=== PATIENT | female | born 1970 | race Caucasian/White ===

== ENCOUNTER 2019-02-02 08:10 | Inpatient (IN) ==
--- NOTE | 2019-01-21 16:04 | PAT Medication Instructions ---
Medication Instructions Date of Service January 21, 2019 Home Medications escitalopram oxalate [Lexapro] 20 mg PO QPM ibuprofen 200 mg PO QID PRN multivitamin 1 tab PO QAM omeprazole 20 mg PO QAM ASK your surgeon for instructions ibuprofen 200 mg PO QID PRN DO NOT take the morning of surgery multivitamin 1 tab PO QAM Take morning of surgery With a small sip of water, OTHERWISE NOTHING TO EAT OR DRINK AFTER MIDNIGHT: omeprazole 20 mg PO QAM Take evening before surgery escitalopram oxalate [Lexapro] 20 mg PO QPM Other Notes If you have any questions please call us at [phone] or [phone] or [phone] or [phone]
--- NOTE | 2019-01-25 15:05 | Anesthesiology Consultation ---
Date of Service January 25, 2019 Assessment & Plan (1) Encounter for pre-operative examination: PCP: 01/20/19: "Patient should be considered low risk" for surgery Chart Review Chart Review: Acceptable Risk for Surgery (pending preop testing (labs, EKG, CXR)) and Patient seen in Pre Admission Testing Teaching & Discussion Pre-Anesthesia Teaching/Discussion Notes: Instructed NPO after midnight before surgery,except medications with 15 cc of water. Medication instructions provided according to the PAT guidelines. History Surgery Operation Date: 02/02/19 10:40 Proposed Procedures p Left Total Knee Arthroplasty - Michael Jenkins MD Height/Weight Height: 5 ft Weight: 73.3 kg Allergies Allergy/AdvReac Type Severity Reaction Status Date / Time latex Allergy Redness of Verified 01/20/19 14:04 Skin Medications Home Medications Medication Instructions Recorded Confirmed Last Taken escitalopram oxalate [Lexapro] 20 mg PO QPM 01/20/19 01/20/19 Unknown ibuprofen 200 mg PO QID PRN 01/20/19 01/20/19 Unknown multivitamin 1 tab PO QAM 01/20/19 01/20/19 Unknown omeprazole 20 mg PO QAM 01/20/19 01/20/19 Unknown Past Medical History Medical History Anxiety Depression GERD (gastroesophageal reflux disease) controlled History of gastric ulcer 2+ years ago Osteoarthritis TMJ click no locking Exercise / Class Metabolic Activity II 4-5 Yardwork/Stairs/Walk up hill Past Surgical History Surgical History History of carpal tunnel surgery of left wrist History of cholecystectomy History of esophagogastroduodenoscopy (EGD) History of hysterectomy History of surgery D&E History of wisdom tooth extraction Past Anesthesia History No Hx of Anesthesia Complications (except post-op nausea) and No Family Hx of Anesthesia Complications History of PONV No Hx of Motion Sickness and History of PONV (post-op nausea) Social History Smoking Status: Never smoker Do You Dip or Chew Tobacco: No Hx Alcohol Use: Yes alcohol intake frequency: holidays/special occasions only Hx Substance Use: No substance use type: does not use Review of Systems Reflux controlled. Patient denies chest pain, shortness of breath, dyspnea on ex ertion, cough, wheezing, palpitations. Physical Exam Vital Signs VITALS BP 98/60 (Patient reports BP today was: 128/82 at PCP visit; advised to followup with PCP) P 85 TEMP 98.4 SP02 93%RA RESP 18 PHYSICAL Full neck and c-spine range of motion. Full TMJ range of motion. TMD 3 finger breaths Mallampati Score 3 Dentition: intact Lungs: clear throughout to auscultation Cardiac: regular rate and rhythm, no murmurs noted Spine: normal Carotid arteries: negative bruit Extremities: no edema
--- NOTE | 2019-01-25 16:03 | XRay Report ---
XR chest 2V routine HISTORY: 48 years-old Female PREOP preoperative exam. No acute chest complaints COMPARISON: None available TECHNIQUE: PA and lateral views of the chest FINDINGS: Cardiomediastinal and hilar silhouettes are within normal limits. There is no pneumothorax, pleural e ffusion, focal airspace consolidation or overt pulmonary edema. Bones of the chest appear grossly int act. Cholecystectomy. IMPRESSION: No acute process. The above report was generated using voice recognition software. It may contain grammatical, syntax o r spelling errors. Electronically signed by: Nba Collins M.D. 01/25/2019 4:01 PM
[2019-01-25 16:37] LABS: Basophils # (auto) 0.04 K/uL (0-0.2); Basophils % (auto) 0.4 %; Eosinophils % (auto) 2.7 %; Hemoglobin 12.5 g/dL (12.0-16.0); Immature Granulocytes # (auto) 0.04 K/uL (0.00-0.02); Immature Granulocytes % (auto) 0.4 %; Lymphocytes # (auto) 3.81 K/uL (1.2-3.4); Mean Corpuscular Hemoglobin 30.5 pg (25-34); Mean Corpuscular Hgb Conc 33.8 g/dL (32-36); Mean Corpuscular Volume 90.2 fL (80-100); Mean Platelet Volume 9.9 fL (7.4-10.4); Monocytes # (auto) 0.57 K/uL (0.11-0.59); Monocytes % (auto) 5.1 %; Neutrophils # (auto) 6.46 K/uL (1.4-6.5); Neutrophils % (auto) 57.4 %; Platelet Count 399 K/uL (130-400); RDW Coefficient of Variation 12.8 % (11.5-14.5); RDW Standard Deviation 42.1 fL (36.4-46.3); White Blood Count 11.22 K/uL (4.8-10.8)
[2019-01-25 16:42] LABS: Appearance Urine Clear (Clear); Bacteria Urine Automated Negative (Negative); Bilirubin Urine Negative (Negative); Blood Urine Trace (Negative); Cast Urine Automated 0 /lpf (0-5); Color Urine Yellow; Glucose Urine UA Negative (Negative); Ketones Urine Negative (Negative); Leukocyte Esterase Urine Trace (Negative); Nitrite Urine Negative (Negative); Protein Urine Negative (Negative); RBC Urine Automated 0-4 /hpf (0-4); Specific Gravity Urine 1.016 (1.000-1.030); Urobilinogen Urine Negative (Negative)
[2019-01-25 16:46] LABS: BUN Creatinine Ratio 18.8 (10-20); Creatinine Clr Calc Pharmacy 67.6 ml/min; Est GFR (African American) 87.6; Est GFR (Non-African American) 75.6; Potassium 3.5 mmol/L (3.5-5.1)
[2019-01-25 16:51] LABS: Partial Thromboplastin Time 26.3 Seconds (21.0-31.0); Prothrombin Time 10.2 Seconds (9.0-12.0)
--- NOTE | 2019-01-31 20:19 | History and Physical Report ---
DATE OF ADMISSION: 02/02/2019 CHIEF COMPLAINT: Left knee pain. HISTORY OF PRESENT ILLNESS: This 48-year-old white female presents to the office with complaints of left knee pain that has been ongoing for over a year. She actually has bilateral knee pain, but the left is worse. Pain has become worse with time. She has tried activity modification as well as oral anti-inflammatories, cortisone injections and viscosupplementation injections without lasting improvement. She elects to proceed with total joint arthroplasty in hopes of alleviating her pain. Pain is worse with weightbearing. It is affecting her ADLs. Worse with prolonged walking. She recently was in [place] and required use of a cane. No numbness or tingling. She notes frequent effusions. Occasional night pain. No hip or ankle pain. Preoperative imaging has been obtained. PAST MEDICAL HISTORY: Significant for anxiety, snoring, history of pneumonia, osteoarthritis, GERD, and obesity. PREVIOUS SURGERIES: Partial hysterectomy, cholecystectomy, left carpal tunnel release, wisdom tooth extraction. ALLERGIES: NKDA. SHE DOES GET SIGNIFICANT REDNESS WITH ADHESIVES AND BAND-AIDS. CURRENT MEDICATIONS: Omeprazole 20 mg daily, Lexapro 20 mg daily, multivitamin daily, ibuprofen p.r.n. SOCIAL HISTORY: The patient is . No tobacco use, occasional ETOH use. FAMILY HISTORY: Noncontributory. REVIEW OF SYSTEMS: A total of 10 systems are reviewed and are significant only for above stated conditions. PHYSICAL EXAMINATION: GENERAL: Well-developed, well-nourished middle aged white female in no acute distress. Sitting in a chair. Alert and oriented. SKIN: Warm and dry with good turgor. No rashes or lesions. No ecchymosis or erythema. Mild intraarticular effusion in the left knee. HEENT: Normocephalic, atraumatic. Eyes PERRLA, EOMI. Nares patent bilaterally without turbinate enlargement. Oropharynx without erythema or exudate. No lesions noted. Uvula midline. Oral mucosa moist. Good dentition. Caps are noted. HEART: RRR. No MGR. LUNGS: Clear to auscultation bilaterally. No crackles, rhonchi or wheezing. Good air movement. ABDOMEN: Obese. Bowel sounds present x4, soft, nontender. No organomegaly. No masses. MUSCULOSKELETAL: Left knee evaluation reveals mild intraarticular effusion as stated. Full terminal extension. Flexion to greater than 100 degrees. Strength is 5/5 with fair quad tone. Crepitus is palpable with motion. She has focal discomfort with palpation over the medial joint line. No significant lateral joint line discomfort with palpation at this time. No defect in the patellar tendon or quadriceps tendon. She does have medial peripatellar discomfort with palpation today as well. Stable collateral ligaments. Ambulatory with a minimally antalgic gait. NEUROLOGIC: Gross sensation is intact across both lower extremities by soft touch. Peripheral pulses are 2+. Cranial nerves II-XII are intact. DATA: Radiographic imaging previously obtained shows varus alignment. Medial joint space collapse. Periarticular osteophytes and subchondral sclerosis are also present. No evidence of fracture. IMPRESSION: Left knee end-stage degenerative joint disease. PLAN: Postoperative prescriptions for Percocet and Coumadin will be provided at discharge from the hospital. Anticipate discharge to home with home health services. Preoperative lab work, EKG, and chest x-ray have been ordered. Medical clearance has been requested from her PCP, Dr. Parrish. She already has access to a cane and walker.
[~2019-02-02 08:10] MED LIST: BUPIVACAINE 0.25% 30 ML VIAL ONE; BUPIVACAINE 0.5 % 5 MG/1 ML PF 10ML VIAL ONE; CEFAZOLIN 2000MG 2,000 MG/15 ML SYR IV SCH; LR 500ML BOLUS IV SCH; LR 60ML/HR IV SCH; ROPIVACAINE 0.5% HCL/PF 150 MG, BUPIVACAINE 0.5% MPF 30 ML, EPINEPHrine 0.15 MG, Ketoro... INFIL SCH; TRANEXAMIC ACID 1,000 MG **IV Pre-op IV SCH
--- NOTE | 2019-02-02 08:34 | History & Physical Bridge Note ---
Date of Service February 02, 2019 History & Physical Bridge Note I have examined the patient, reviewed the History & Physical and in the interval since the performance of the History & Physical I have noted the following changes of clinical significance:consent obtained. no changes noted
[2019-02-02] MEDS ORDERED: MIDAZOLAM HCL 1 MG/ML 2ML VIAL ONE ×3 (09:29→12:04)
[2019-02-02] MEDS ORDERED: ORTHO JOINT ANESTHETIC ONE (10:44)
[2019-02-02] MEDS ORDERED: ONDANSETRON INJ 2 MG/ML 2 ML VIAL IV PRN (10:51)
[2019-02-02] MEDS ORDERED: ATROPINE SULFATE 0.1 MG/ML 10ML SYR IV PRN (10:51)
[2019-02-02] MEDS ORDERED: ePHEDrine sulfate 50 MG/ML AMP IV PRN (10:51)
[2019-02-02] MEDS ORDERED: fentaNYL citrate 100 MCG/2 ML VIAL IV PRN (10:51)
[2019-02-02] MEDS ORDERED: PROPOFOL IV EMULSION 10 MG/ML 20 ML VIAL IV ONE ×2 (11:18→12:00)
[2019-02-02] MEDS ORDERED: LIDOCAINE HCL 2% 2 ML VIAL/AMP(20MG/ML) INFIL ONE (11:18)
[2019-02-02] MEDS ORDERED: ONDANSETRON INJ 2 MG/ML 2 ML VIAL ONE (11:18)
[2019-02-02] MEDS ORDERED: PHENYLEPHRINE 100MCG/ML 5ML SYR ONE (12:14)
--- NOTE | 2019-02-02 12:35 | Post Operative Brief Note ---
Immediate Post Op Note v1 Date of Surgery February 02, 2019 Pre & Post Diagnosis Operation Date: 02/02/19 10:40 Pre-Op Diagnosis: Left Knee End-Stage Degenerative Joint Disease Post-Op Diagnosis: Left Knee End-Stage Degenerative Joint Disease Procedure Operation Date: 02/02/19 10:40 Actual Procedures p Left Total Knee Arthroplasty(Left) - Michael Jenkins MD Surgeon Michael Jenkins MD Sales And Production Manager [facility] Estimated Blood Loss 25 Findings Consistent with Post-Op Diagnosis
--- NOTE | 2019-02-02 12:36 | Post Operative Brief Note ---
Immediate Post Op Note v1 Date of Surgery February 02, 2019 Pre & Post Diagnosis Operation Date: 02/02/19 10:40 Pre-Op Diagnosis: Left Knee End-Stage Degenerative Joint Disease Post-Op Diagnosis: Left Knee End-Stage Degenerative Joint Disease Procedure Operation Date: 02/02/19 10:40 Actual Procedures p Left Total Knee Arthroplasty(Left) - Michael Jenkins MD Surgeon Michael Jenkins MD Regulator Assembler [facility] Estimated Blood Loss 25 Findings Consistent with Post-Op Diagnosis
--- NOTE | 2019-02-02 12:41 | Operative Report ---
Post Operative Report Pre & Post Diagnosis Operation Date: 02/02/19 10:40 Pre-Op Diagnosis: Left Knee End-Stage Degenerative Joint Disease Post-Op Diagnosis: Left Knee End-Stage Degenerative Joint Disease Procedure Operation Date: 02/02/19 10:40 Actual Procedures p Left Total Knee Arthroplasty(Left) - Michael Jenkins MD Surgeon SCOT Jenkins MD Textile Designer [facility] Estimated Blood Loss 25 Findings Consistent with Post-Op Diagnosis Specimens see operative report Drains none Complications none Disposition Accompanied Patient To Recovery: Yes Disposition: Recovery Room Indications This 48-year-old white female presented to the office with complaints of intractable left knee pain. She had tried conservative care measures including injection therapy, activity modification, and oral medications, without improvement. She elected to proceed with surgical intervention after being educated about potential risks and outcomes. Preoperative imaging was obtained. Description of Procedure Patient was administered a spinal anesthetic and then taken to the operating room where she was given sedation. She was prepped and draped in the usual ster ile fashion. Please see Dr. Jenkins's operative report for specifics of the procedure. I was present for the entire case from initial patient positioning through final wound care. Assistance was provided in tissue retraction, hemostasis, trial implant placement, final implant placement, and final wound closure. Patient was taken to the recovery room in satisfactory condition. I attest to the content of the Intraoperative Record and any orders documented therein. Any exceptions are noted below.
--- NOTE | 2019-02-02 13:01 | Anesthesiology Progress Note ---
Date of Service February 02, 2019 Anesthesia Post Procedure Vital Signs Vital Signs: Temp Pulse Resp BP Pulse Ox 02/02/19 08:37 36.8 C 78 18 127/75 100 Pain Intensity Left Knee: Pain Intensity: 3 Transfer of Care Handoff Completed per policy Notes Mental Status: alert / awake / arousable and participated in evaluation Nausea / Vomiting: adequately controlled Pain: adequately controlled Airway Patency, RR, SpO2: stable & adequate BP & HR: stable & adequate Hydration State: stable & adequate Neuraxial Anesthesia: was administered and sensory block is resolving Anesthetic Complications: no major complications apparent and Pt Satisfied with anesthetic care
--- NOTE | 2019-02-02 13:18 | XRay Report ---
XR knee LT 2V routine CLINICAL HISTORY: Surgical Post Op postoperative evaluation COMPARISON: None. DISCUSSION: Anatomic alignment posttotal left knee arthroplasty. Could contact between prosthetic and underlying bone. Expected postoperative soft tissue change IMPRESSION: Anatomic alignment posttotal left knee arthroplasty. The above report was generated using voice recognition software. It may contain grammatical, syntax or spelling errors. Electronically signed by: Maikel Brewster M.D. 02/02/2019 1:16 PM
--- NOTE | 2019-02-02 13:46 | Progress Note ---
DATE: 02/02/2019 Postop check status post left total knee replacement. The patient is doing well, has no issues. She denies chest pain, shortness of breath, fever, chills, nausea, vomiting or headache. Vital signs are stable. She is afebrile. Neurovascular check femoral sciatic nerve is coming back from the block. ASSESSMENT: Doing well status post left total knee replacement. Postop x-rays look excellent. Plan at this point in time is to follow up with potential discharge tomorrow and proceed with home health services. Coumadin to keep DVT, PE risk to a minimal.
--- NOTE | 2019-02-02 13:47 | Operative Report ---
DATE OF OPERATION: 02/02/2019 SURGEON: Michael Jenkins M.D. NURSE PRACTITIONER MANAGER: Elijah Dominguez PA-C. No resident or fellow available. PREOPERATIVE DIAGNOSIS: Osteoarthritis, left knee. Failed conservative management. POSTOPERATIVE DIAGNOSIS: Osteoarthritis, left knee. Failed conservative management. OPERATION PERFORMED: Cemented left total knee replacement. PERIOPERATIVE SITUATION: Medically cleared female who has had significant discomfort despite being treated aggressively conservatively including steroid injections, viscosupplementation injections, oral anti-inflammatories. X-rays reveal medial compartment osteoarthritis and patellofemoral osteoarthritis. DESCRIPTION OF PROCEDURE: The patient appropriately identified, site verified, consent verified. Antibiotics confirmed as being given. Left lower extremity was prepped and draped in usual routine fashion. Tourniquet inflated to 300 mmHg after exsanguination of limb with a rubber Esmarch bandage. Tourniquet inflated to 300 mmHg for a total of 54 minutes. Midline exposure was utilized. Parapatellar arthrotomy performed. Synovectomy completed. Osteophytes resected. Distal femur entered. Cruciates resected. Tibia subluxated. Medial and lateral menisci resected. Distal femur resected 12 mm. Proximal tibia resected 4 mm. The extension gap was excellent. The femur was sized between a 2.5 and a 2, was measured 2-1/2, cut 2. There was no notching. The flexion gap was a little bit tight medially. It was released a little bit posteriorly, then was excellent. The box cut was then made. It should be mentioned that the distal femoral cutting guide was applied. Anterior, posterior condylar and chamfer cuts were made nicely and then the flexion gap was checked. Once the flexion gap was checked, it was slightly tight medially and released a little bit and then it was excellent. The box cut was then made. Size 2.5 fit well. The tibia was then broached and then reamed to a size 2 with a spacer of 10 mm thick, posterior cruciate substituting was excellent. The patella tracked well. The patella was sized to a 38, resected leaving 15 mm. Seating holes made and the trial seated, it tracked well. Orthomix was then all injected about the knee including posteriorly. This was then removed. The wound was irrigated with Betadine Pulsavac and then the permanent cemented into position, tibia, femur and patella in that sequence. After 12 minutes, the tourniquet deflated. Bleeding points controlled with electrocautery. After 14 minutes, the knee flexed. No cement removal was required. The wound was irrigated copiously with Betadine and Pulsavac and then permanent liner seated and then closed at 60 degrees of flexion with #2 Vicryl, 2-0 Vicryl and stainless steel clips for skin. Appropriate dressing applied. The patient transferred to recovery room in satisfactory condition having tolerated the procedure well. Bone pathology pending. DVT prophylaxis with Coumadin. Summary of implants as noted above, left knee. EBL was 25 mL. I attest to the content of the Intraoperative Record and any orders documented therein. Any exception s are noted below.
--- NOTE | 2019-02-02 14:03 | Discharge Summary ---
CHIEF COMPLAINT: Left knee pain. HISTORY OF PRESENT ILLNESS: The patient underwent elective left total knee replacement. She has done well and has no major issues. PAST MEDICAL HISTORY: Remarkable for anxiety, snoring, pneumonia, osteoarthritis, GERD, and obesity. PAST SURGICAL HISTORY: Include hysterectomy, cholecystectomy, carpal tunnel release, wisdom tooth extraction. ALLERGIES: BAND-AIDS and otherwise nothing known. PREADMISSION MEDICATIONS: Include omeprazole, Lexapro, p.r.n. ibuprofen. She will be discharged on Coumadin, keep INR 1.8-2.2 and p.r.n. Percocet. SOCIAL HISTORY: Reveals she is . No tobacco or alcohol use. REVIEW OF SYSTEMS: Reveals no chest pain, shortness of breath, fever, chills, nausea, vomiting or headache. ASSESSMENT AND PLAN: Status post left total knee replacement. Continue postop care pathway. Discharge tomorrow morning. Outpatient services. Follow up in 2 weeks for staple removal.
[2019-02-02] MEDS ORDERED: ALUMINUM/MAGNESIUM SUSP 30 ML UDC PO PRN (14:43)
[2019-02-02] MEDS ORDERED: NALOXONE HCL 0.4 MG/1 ML VIAL/CARP IV PRN (14:43)
[2019-02-02] MEDS ORDERED: SODIUM CHLORIDE 0.9% 1000ML 1,000 ML IV SCH (14:43)
[2019-02-02] MEDS ORDERED: MAGNESIUM HYDROXIDE SUSP 30 ML UDC PO PRN (14:43)
[2019-02-02] MEDS ORDERED: BISACODYL 10 MG SUPP PR PRN (14:43)
[2019-02-02] MEDS ORDERED: METOCLOPRAMIDE HCL INJ 5 MG/ML 2 ML VIAL IV PRN (14:43)
[2019-02-02] MEDS ORDERED: HYDROmorphone INJ 0.5 MG/0.5 ML SYR IV PRN (14:43)
[2019-02-02] MEDS ORDERED: DiphenhydrAMINE HCL 50 MG/ML VIAL IV PRN (14:43)
[2019-02-02] MEDS: ACETAMINOPHEN 500 MG TAB PO SCH ×2 (15:39→21:30)
[2019-02-02] MEDS ORDERED: WARFARIN SOD 5 MG TAB PO ONE (16:00)
[2019-02-02] MEDS: KETOROLAC 30 MG/ML VIAL IV SCH ×2 (16:14→21:30)
[2019-02-02] MEDS: ASCORBIC ACID 500 MG TAB PO SCH (16:14)
[2019-02-02] MEDS: FERROUS GLUCONATE 324 MG TAB PO SCH (16:14)
[2019-02-02] MEDS: ORTHO WARFARIN NOMOGRAM SCH (16:21)
[2019-02-02] MEDS: CEFAZOLIN 2000MG 2,000 MG/15 ML SYR IV SCH (18:40)
[2019-02-02] MEDS ORDERED: TRANEXAMIC ACID 1,000 MG in 0.9 % SODIUM CHLORIDE 100 ML IV SCH (19:00)
[2019-02-02] MEDS: DOCUSATE SODIUM 100 MG CAP PO SCH (20:43)
[2019-02-02] MEDS ORDERED: ESCITALOPRAM OXALATE 20 MG TAB PO SCH (21:00)
[2019-02-02] MEDS ORDERED: SENNA 8.6 MG TAB PO SCH (21:00)
[2019-02-03] MEDS: OXYCODONE HCL IR 5 MG TAB (IMMEDIATE RELEASE) PO PRN ×3 (00:10→12:05)
[2019-02-03] MEDS: KETOROLAC 30 MG/ML VIAL IV SCH ×3 (03:33→11:12)
[2019-02-03] MEDS: CEFAZOLIN 2000MG 2,000 MG/15 ML SYR IV SCH (03:34)
[2019-02-03] MEDS: ACETAMINOPHEN 500 MG TAB PO SCH (05:51)
--- NOTE | 2019-02-03 07:01 | Progress Note ---
DATE: 02/03/2019 SUBJECTIVE: Status post left total knee replacement. The patient is doing well, sitting up in bed dressed, has no issues. Denies chest pain, shortness of breath, fever, chills, nausea, vomiting or headache. OBJECTIVE: Vital signs are stable. She is afebrile. A.m. labs are pending. Can do a straight leg raise. Femoral sciatic nerve function is normal. Calves nontender. ASSESSMENT: Doing well. Continue with discharge. PLAN: Needs urgent stat case management appointment this morning. Was not seen yesterday for some reason. After PT, she can be discharged.
[2019-02-03 07:14] LABS: Hematocrit (blood only) 33.7 % (37-47); Mean Corpuscular Hemoglobin 29.3 pg (25-34); Mean Corpuscular Hgb Conc 32.6 g/dL (32-36); Mean Corpuscular Volume 89.9 fL (80-100); Mean Platelet Volume 9.5 fL (7.4-10.4); Platelet Count 341 K/uL (130-400); RDW Coefficient of Variation 12.6 % (11.5-14.5); RDW Standard Deviation 41.5 fL (36.4-46.3); Red Blood Count 3.75 M/uL (4.2-5.4); White Blood Count 14.59 K/uL (4.8-10.8)
[2019-02-03 07:29] LABS: INR 1.1 (0.9-1.1); Prothrombin Time 10.8 Seconds (9.0-12.0)
--- NOTE | 2019-02-03 07:47 | Anesthesiology Progress Note ---
Date of Service February 03, 2019 Anesthesia Post Procedure Vital Signs Vital Signs: Temp Pulse Pulse Resp BP BP Pulse Ox 02/03/19 07:37 36.8 C 72 17 111/71 97 02/03/19 03:34 36.7 C 76 16 113/74 97 02/02/19 23:24 36.8 C 77 16 115/72 97 02/02/19 18:51 36.2 C L 73 19 108/70 96 02/02/19 16:23 37.0 C 80 19 111/72 95 02/02/19 15:44 37.0 C 86 19 129/74 02/02/19 14:54 37.0 C 85 19 114/76 94 02/02/19 14:30 37.1 C 74 16 107/67 94 02/02/19 14:00 75 15 108/62 90 02/02/19 13:45 72 15 105/65 91 02/02/19 13:30 69 16 97/62 L 95 02/02/19 13:15 36.6 C 78 16 103/59 L 94 02/02/19 13:10 78 18 106/62 95 02/02/19 13:00 73 14 107/64 95 02/02/19 12:50 77 18 101/59 L 98 02/02/19 12:40 37.0 C 84 16 103/61 99 02/02/19 08:37 36.8 C 78 18 127/75 100 Pain Intensity Left Knee: Pain Intensity: 4 Notes Mental Status: alert / awake / arousable and participated in evaluation Patient Amnestic to Procedure: Yes Nausea / Vomiting: adequately controlled Pain: adequately controlled Airway Patency, RR, SpO2: stable & adequate BP & HR: stable & adequate Hydration State: stable & adequate Anesthetic Complications: no major complications apparent and Pt Satisfied with anesthetic care
[2019-02-03 07:49] LABS: BUN Creatinine Ratio 19.6 (10-20); Calcium 8.9 mg/dl (8.5-10.1); Creatinine Clr Calc Pharmacy 75.5 ml/min; Est GFR (African American) 101.2; Est GFR (Non-African American) 87.3; Potassium 3.7 mmol/L (3.5-5.1)
[2019-02-03] MEDS ORDERED: dexAMETHasone 10 MG in SYRINGE 0 ML IV SCH (08:00)
[2019-02-03] MEDS: DOCUSATE SODIUM 100 MG CAP PO SCH (08:48)
[2019-02-03] MEDS: ASCORBIC ACID 500 MG TAB PO SCH (08:48)
[2019-02-03] MEDS: FERROUS GLUCONATE 324 MG TAB PO SCH (08:49)
[2019-02-03] MEDS ORDERED: MULTIVITAMIN TAB PO SCH (09:00)
[2019-02-03] MEDS ORDERED: PANTOprazole 40 MG TAB PO SCH (09:00)
[2019-02-03] MEDS: ORTHO WARFARIN NOMOGRAM SCH (10:52)
[2019-02-03] MEDS ORDERED: WARFARIN SOD 5 MG TAB PO ONE (16:00)
== END 2019-02-03 12:27 | disposition home health service (06) | DRG 470 ==
LOC: ASU 08:10 → 3N 12:50

== ENCOUNTER 2020-02-29 06:51 | Observation (INO) ==
--- NOTE | 2020-02-02 15:02 | PAT Medication Instructions ---
Medication Instructions Date of Service February 02, 2020 Home Medications escitalopram oxalate [Lexapro] 20 mg PO QPM multivitamin 1 tab PO QAM omeprazole 20 mg PO QAM PRN ibuprofen 400 - 600 mg PO Q6H PRN ASK your surgeon for instructions ibuprofen 400 - 600 mg PO Q6H PRN DO NOT take the morning of surgery multivitamin 1 tab PO QAM Take morning of surgery With a small sip of water, OTHERWISE NOTHING TO EAT OR DRINK AFTER MIDNIGHT: omeprazole 20 mg PO QAM PRN (if needed) Take evening before surgery escitalopram oxalate [Lexapro] 20 mg PO QPM Other Notes If you have any questions please call us at [phone] or [phone] or [phone] or [phone]
--- NOTE | 2020-02-06 12:16 | Anesthesiology Consultation ---
Date of Service February 06, 2020 Assessment & Plan (1) Encounter for pre-operative examination: - Per assessment on 02/05: Travel screen- Lives/works in [facility] [place]. Uses PPE. No known COVID-19 positive contacts or current COVID-19 related symptoms. Surgeon arranging preop COVID testing. Awaiting results. - S/P Left TKA: 02/02/18: SAB x1 attempt at L3 + PNB at [facility] Chart Review Chart Review: Acceptable Risk for Surgery (pending surgeon-ordered PCP clearance) and Patient seen in Pre Admission Testing History Surgery Operation Date: 02/29/20 08:50 Proposed Procedures p Right Total Knee Arthroplasty - Michael Jenkins MD Height/Weight Height: 5 ft Weight: 73.7 kg Allergies Allergy/AdvReac Type Severity Reaction Status Date / Time adhesive Allergy Unknown redness Verified 02/06/20 14:50 with bandaids/tape Medications Home Medications Medication Instructions Recorded Confirmed Last Taken escitalopram oxalate [Lexapro] 20 mg PO QPM 01/20/19 02/01/20 02/01/19 21:00 multivitamin 1 tab PO QAM 01/20/19 02/01/20 02/01/19 21:00 omeprazole 20 mg PO QAM PRN 01/20/19 02/01/20 02/02/19 06:30 ibuprofen 400 - 600 mg PO Q6H PRN 02/01/20 02/01/20 Unknown Past Medical History Medical History (Updated 02/06/20 @ 12:12 by Tracy Lomeli) Anxiety Depression GERD (gastroesophageal reflux disease) controlled History of gastric ulcer 2+ years ago Osteoarthritis TMJ click R/L, no locking Exercise / Class Metabolic Activity II 4-5 Yardwork/Stairs/Walk up hill Past Surgical History Surgical History (Updated 02/06/20 @ 14:51 by Tracy Lomeli) History of carpal tunnel surgery of left wrist History of cholecystectomy History of esophagogastroduodenoscopy (EGD) History of hysterectomy History of surgery D&E History of total knee replacement Left TKA: 02/02/18: SAB x1 attempt at L3 + PNB at [facility] History of wisdom tooth extraction Past Anesthesia History No Hx of Anesthesia Complications (except PONV) and No Family Hx of Anesthesia Complications History of PONV No Hx of Motion Sickness and History of PONV Social History Smoking Status: Never smoker Do You Dip or Chew Tobacco: No Hx Alcohol Use: Yes Alcohol type: wine alcohol intake frequency: holidays/special occasions only Alcohol Intake Frequency Comment: RARELY Hx Substance Use: No substance use type: does not use Review of Systems Patient denies chest pain, shortness of breath, dyspnea on exertion, fever, chills, cough, wheezing, palpitations. Physical Exam Vital Signs VITALS BP 107/74 P 75 TEMP 98.1 SP02 98%RA RESP 16 PHYSICAL Full neck and c-spine range of motion. Full TMJ range of motion. TMD 3.5 finger breaths Mallampati Score 2 Dentition: intact Lungs: clear throughout to auscultation Cardiac: regular rate and rhythm, no murmurs noted Spine: normal Extremities: no edema Testing Laboratory Results 02/06/20 11:58 02/06/20 11:25 PT 10.3 Seconds (9.0-12.0) 02/06/20 11:58 INR 1.0 (0.9-1.1) 02/06/20 11:58 APTT 27.4 Seconds (21.0-31.0) 02/06/20 11:58 Urine Color Yellow 02/06/20 Unknown Urine Appearance Clear (Clear) 02/06/20 Unknown Urine pH 5.5 (4.5-7.5) 02/06/20 Unknown Ur Specific [place] 1.008 (1.000-1.030) 02/06/20 Unknown Urine Protein Negative (Negative) 02/06/20 Unknown Urine Glucose (UA) Negative (Negative) 02/06/20 Unknown Urine Ketones Negative (Negative) 02/06/20 Unknown Urine Nitrite Negative (Negative) 02/06/20 Unknown Ur Leukocyte Esterase Trace (Negative) H 02/06/20 Unknown Urine WBC (Auto) 1-5 /hpf (0-5) 02/06/20 Unknown Urine RBC (Auto) 0-4 /hpf (0-4) 02/06/20 Unknown U Hyaline Cast (Auto) 0 /lpf (0-5) 02/06/20 Unknown U Epithel Cells (Auto) 5-10 /lpf (0-5) H 02/06/20 Unknown Urine Bacteria (Auto) Negative (Negative) 02/06/20 Unknown Blood Type B Positive 02/06/20 11:58 Antibody Screen NEGATIVE 02/06/20 11:58 Electrocardiogram Date: 02/06/20 Findings: + NSR @ (69) Chest X-Ray Date: 02/06/20 FINDINGS: Cardiomediastinal and hilar silhouettes are within normal limits. No pneumothorax, pleural effusion, airspace consolidation or overt pulmonary edema. Bones of the chest appear grossly intact. Cholecystectomy. IMPRESSION: No acute process.
--- NOTE | 2020-02-06 12:53 | XRay Report ---
XR chest Pre-admission PA/Lat HISTORY: 49 years-old Female pat preoperative exam. No acute chest complaints COMPARISON: Chest radiograph 01/25/2019 TECHNIQUE: PA and lateral views of the chest FINDINGS: Cardiomediastinal and hilar silhouettes are within normal limits. No pneumothorax, pleural effusion, airspace consolidation or overt pulmonary edema. Bones of the chest appear grossly intact. Cholecyste ctomy. IMPRESSION: No acute process. ACT 112: Negative or not required by law. The above report was generated using voice recognition software. It may contain grammatical, syntax o r spelling errors. Electronically signed by: Nba Collins M.D. 02/06/2020 12:52 PM
[2020-02-06 12:59] LABS: Basophils % (auto) 0.5 %; Eosinophils % (auto) 5.6 %; Hematocrit (blood only) 37.6 % (37-47); Hemoglobin 12.4 g/dL (12.0-16.0); Lymphocytes % (auto) 28.8 %; Mean Corpuscular Hemoglobin 29.7 pg (25-34); Mean Corpuscular Volume 90.2 fL (80-100); Mean Platelet Volume 9.2 fL (7.4-10.4); Monocytes % (auto) 6.3 %; Neutrophils % (auto) 58.5 %; Platelet Count 400 K/uL (130-400); RDW Coefficient of Variation 12.7 % (11.5-14.5); RDW Standard Deviation 41.9 fL (36.4-46.3); Red Blood Count 4.17 M/uL (4.2-5.4); White Blood Count 7.56 K/uL (4.8-10.8)
[2020-02-06 13:00] LABS: Basophils # (auto) 0.04 K/uL (0-0.2); Eosinophils # (auto) 0.42 K/uL (0-0.5); Immature Granulocytes # (auto) 0.02 K/uL (0.00-0.02); Immature Granulocytes % (auto) 0.3 %; Lymphocytes # (auto) 2.18 K/uL (1.2-3.4); Monocytes # (auto) 0.48 K/uL (0.11-0.59); Neutrophils # (auto) 4.42 K/uL (1.4-6.5)
[2020-02-06 13:05] LABS: Appearance Urine Clear (Clear); Bacteria Urine Automated Negative (Negative); Bilirubin Urine Negative (Negative); Blood Urine Trace (Negative); Cast Urine Automated 0 /lpf (0-5); Color Urine Yellow; Glucose Urine UA Negative (Negative); Ketones Urine Negative (Negative); Leukocyte Esterase Urine Trace (Negative); Nitrite Urine Negative (Negative); Protein Urine Negative (Negative); RBC Urine Automated 0-4 /hpf (0-4); Specific Gravity Urine 1.008 (1.000-1.030); Urobilinogen Urine Negative (Negative); pH Urine 5.5 (4.5-7.5)
[2020-02-06 13:13] LABS: Calcium 9.4 mg/dl (8.5-10.1); Creatinine Clr Calc Pharmacy 77.5 ml/min; Est GFR (African American) 103.6; Est GFR (Non-African American) 89.4; Potassium 4.1 mmol/L (3.5-5.1)
[2020-02-06 13:15] LABS: Partial Thromboplastin Time 27.4 Seconds (21.0-31.0); Prothrombin Time 10.3 Seconds (9.0-12.0)
--- NOTE | 2020-02-06 14:09 | Electrocardiogram Report ---
Test Reason : Blood Pressure : / mmHG Vent. Rate : 069 BPM Atrial Rate : 069 BPM P-R Int : 140 ms QRS Dur : 080 ms QT Int : 400 ms P-R-T Axes : 058 011 029 degrees QTc Int : 428 ms Normal sinus rhythm Normal ECG When compared with ECG of 25-JAN-2019 15:32, No significant change was found Confirmed by Martinez Montes ([id number]) on 02/06/2020 2:08:53 PM Referred By: Michael Jenkins Confirmed By:Martinez Montes
--- NOTE | 2020-02-08 16:00 | History & Physical Report ---
Date of Service February 08, 2020 Assessment & Plan (1) Right knee DJD: Postoperative prescriptions for Percocet and Coumadin will be provided at discharge from the hospital. Anticipate discharge to home with home health services. She already has a walker and raised toilet seat. Preoperative lab work, EKG, and chest x-ray have been ordered. Medical clearance has already been received from her PCP. PDMP was checked and no concerning findings were noted. The patient is aware of the COVID-19 risks associated with surgery. She is currently asymptomatic of any COVID-19 symptoms. She will obtain nasal swab testing prior to proceeding with surgery. History of Present Illness Chief Complaint: RIght knee pain Primary Care Provider: Francisco Parrish This 49-year-old white female presents today for a longstanding history of right knee pain. She is scheduled to undergo a right knee total knee arthroplasty on 02/29/2020. It has become worse over the last 6 months. Pain is worse with weightbearing and ambulation. It is affecting her ADLs. She denies any numbness or tingling. No catching or locking. No buckling. She notes a slight curvature developing in her leg. She has a previous history of left total knee arthroplasty and has done well with that. She elects to proceed with the same on the right. Preoperative imaging has been obtained. Allergies Allergy/AdvReac Type Severity Reaction Status Date / Time adhesive Allergy Unknown redness Verified 02/06/20 14:50 with bandaids/tape Home Medications Home Medications Medication Instructions Recorded Confirmed Type escitalopram oxalate [Lexapro] 20 mg PO QPM 01/20/19 02/01/20 History multivitamin 1 tab PO QAM 01/20/19 02/01/20 History omeprazole 20 mg PO QAM PRN 01/20/19 02/01/20 History ibuprofen 400 - 600 mg PO Q6H PRN 02/01/20 02/01/20 History Past Med/Surg History Medical History Anxiety Depression GERD (gastroesophageal reflux disease) controlled History of gastric ulcer 2+ years ago Obesity Osteoarthritis TMJ click R/L, no locking Surgical History History of carpal tunnel surgery of left wrist History of cholecystectomy History of esophagogastroduodenoscopy (EGD) History of hysterectomy History of surgery D&E History of total knee replacement Left TKA: 02/02/18: SAB x1 attempt at L3 + PNB at [facility] History of wisdom tooth extraction Family History Other Alzheimer disease COPD (chronic obstructive pulmonary disease) Hypertension Seizure Social History Smoking Status: Never smoker Second Hand Exposure: Yes (PARENTS SMOKED); Do You Dip or Chew Tobacco: No; Hx Alcohol Use: Yes Alcohol type: wine Hx Substance Use: No Preferred Language: [place] Communication Ability: Effective Printer'S Assistant Required: No Beliefs That Will Affect Care: None Current Living Situation: Spouse and Family Other Information That Helps Us Care for You: No Feels Safe at Home: Yes Safety Concerns: Feels Safe At This Time Review of Systems Review of Systems: All systems reviewed & are unremarkable except as noted in HPI & below A total of 10 systems were reviewed. Physical Exam Physical Exam: Vitals: Temp 36.6, BP 142/80, pulse 87, O2 sat 97% on room air, height 152.3 cm, weight 73.7 kilograms, BMI 31.8. General: Well- developed, well-nourished middle-aged white female in no acute distress. Sitting in a chair. Alert and oriented. Skin: Warm and dry with good turgor. No rashes or lesions. No ecchymosis or erythema. Well-healed surgical scar on the left leg. HEENT: Normocephalic, atraumatic. Eyes: PERRLA, EOMI. Oropharynx and nares exams deferred due to COVID precautions. Heart: RRR, no MGR. Lungs: Clear to auscultation bilaterally, no crackles, rhonchi or wheezing, good air movement. Abdomen: Obese, bowel sounds present x4, soft, nontender. No organomegaly. No masses. Musculoskeletal: Right knee evaluation reveals no obvious deformity. Slight varus stance. She has focal discomfort with palpation over the medial and lateral joint lines, medial being worse. Full terminal extension. Flexion to greater than 100 degrees. Strength is 5/5 with fair quad tone. No defect in the patellar tendon or quadriceps tendon. No current palpable crepitus with motion. Ambulates with a slight antalgic gait. Neurologic: Gross sensation is intact across both lower extremities by soft touch. Peripheral pulses are 2+. Results & Data Results & Data ([facility]) Diagnostic Findings Radiographic imaging previously obtained shows advancing medial compartment DJD as well as patellofemoral DJD. Periarticular osteophytes, subchondral sclerosis, and joint space narrowing are all present.
[2020-02-27 21:16] LABS: SARS CoV2 RNA (COVID-19) NOT DETECTED (NOT DETECTED)
[~2020-02-29 06:51] MED LIST changes: -BUPIVACAINE 0.25% 30 ML VIAL ONE; +EPINEPHrine INJ 1 MG/ML AMP ONE; -LR 500ML BOLUS IV SCH; +LR 500ML BOLUS, THEN 15ML/HR IV SCH; +ROPIVACAINE 0.5% 5 MG/ML 30 ML VIAL ONE
--- NOTE | 2020-02-29 07:00 | History & Physical Bridge Note ---
Date of Service February 29, 2020 History & Physical Bridge Note I have examined the patient, reviewed the History & Physical and in the interval since the performance of the History & Physical I have noted the following changes of clinical significance:consent obtained/site verified/covid screen negative. no changes noted
[2020-02-29] MEDS ORDERED: MIDAZOLAM HCL 1 MG/ML 2ML VIAL ONE ×2 (07:53→09:35)
[2020-02-29] MEDS ORDERED: fentaNYL citrate 100 MCG/2 ML VIAL ONE (07:53)
[2020-02-29] MEDS ORDERED: ORTHO JOINT ANESTHETIC ONE (08:55)
[2020-02-29] MEDS ORDERED: LIDOCAINE HCL 2% 2 ML VIAL/AMP(20MG/ML) INFIL ONE (09:35)
[2020-02-29] MEDS ORDERED: PROPOFOL IV EMULSION 10 MG/ML 20 ML VIAL IV ONE (09:35)
[2020-02-29] MEDS ORDERED: ePHEDrine sulfate 50 MG/ML AMP IV PRN (10:24)
[2020-02-29] MEDS ORDERED: ATROPINE SULFATE 0.1 MG/ML 10ML SYR IV PRN (10:24)
--- NOTE | 2020-02-29 10:52 | Post Operative Brief Note ---
Immediate Post Op Note v1 Date of Surgery February 29, 2020 Pre & Post Diagnosis Operation Date: 02/29/20 08:50 Pre-Op Diagnosis: Right Knee Degenerative Joint Disease Post-Op Diagnosis: Right Knee Degenerative Joint Disease I identified the patient and participated in the time-out.: Yes Procedure Operation Date: 02/29/20 08:50 Actual Procedures p Right Total Knee Arthroplasty, Cemented(Right) - Michael Jenkins MD Surgeon Michael Jenkins MD Greens Cutter roly/mary Estimated Blood Loss 25 Findings Consistent with Post-Op Diagnosis
--- NOTE | 2020-02-29 10:57 | Operative Report ---
Post Operative Report Pre & Post Diagnosis Operation Date: 02/29/20 08:50 Pre-Op Diagnosis: Right Knee Degenerative Joint Disease Post-Op Diagnosis: Right Knee Degenerative Joint Disease I identified the patient and participated in the time-out.: Yes Procedure Operation Date: 02/29/20 08:50 Actual Procedures p Right Total Knee Arthroplasty, Cemented(Right) - Michael Jenkins MD Surgeon SCOT Jenkins MD Dog Or Animal Sitter chad/mary MAYORGA Estimated Blood Loss 25 Findings Consistent with Post-Op Diagnosis Specimens see operative report Drains none Complications none Disposition Accompanied Patient To Recovery: Yes Disposition: Recovery Room Indications This 49-year-old white female presented to the office with complaints of persisting right knee pain. She had tried conservative care measures without improvement. She elected to proceed with surgical intervention after being educated about potential risks and outcomes. Preoperative imaging was obtained. She previously had a left total knee arthroplasty and has done well with that. She elected to proceed with the same on the right. Description of Procedure Patient was administered a spinal anesthetic and then taken to the operating room where she was given sedation. She was prepped and draped in the usual sterile fashion. Please see Dr. Jenkins's operative report for specifics of the procedure. I was present for the entire case from initial positioning through final wound closure. Assistance was provided in tissue retraction, hemostasis, trial implant placement, final implant placement, and final wound closure. Patient was taken to the recovery room in satisfactory condition. I attest to the content of the Intraoperative Record and any orders documented therein. Any exceptions are noted below.
--- NOTE | 2020-02-29 11:08 | Operative Report (OR) ---
DATE OF OPERATION: 02/29/2020 SURGEON: Michael Jenkins MD. BOLT SORTER: Dr. Blancas. SECOND BOLT SORTER: Elijah Dominguez PA-C. PREOPERATIVE DIAGNOSIS: Osteoarthritis with varus deformity, right knee. POSTOPERATIVE DIAGNOSIS: Osteoarthritis with varus deformity, right knee. OPERATION PERFORMED: Cemented right total knee replacement. SUMMARY OF IMPLANTS: Size 2.5 right posterior cruciate substituting femur, size 2.5 mobile bearing tray, a 38 patella, 2.5 x 10 mm insert. Two bags of Palacos G cement. ESTIMATED BLOOD LOSS: 25 mL BONE PATHOLOGY: Pending. CRYSTALLOID: Per anesthesia. DVT prophylaxis per protocol. PERIOPERATIVE SITUATION: Medically cleared female with intractable knee pain, has failed conservative management for years. At this point in time, wants to proceed with knee replacement, had the other side done several years ago. She understands the risks and consequences. Please see consent. DESCRIPTION OF PROCEDURE: The patient was appropriately identified, site verified, consent verified. Antibiotics confirmed as being given. The right lower extremity was prepped and draped in usual routine fashion. Tourniquet inflated to 275 mmHg after exsanguination of limb with a rubber Esmarch bandage for a total of 56 minutes. Midline exposure utilized. Parapatellar arthrotomy performed. Synovectomy completed, osteophytes resected. Distal femur entered. Cruciates resected. Tibia subluxated, menisci resected. Distal femur resected 12 mm, proximal tibia resected 4 mm, extension gap was good. Perhaps slightly tight, but acceptable. The femur was then cut to a size 2.5. It was measured 3 cut 2.5 to prevent notching. Flexion gap was checked. It was still a little tight, so additional 2 mm was taken off the tibia. This allowed the flexion gap to be excellent. Did not really change the extension gap. The box cut was then made and the 2.5 femur fit well. The tibia was then broached and reamed to a 2.5 and then the 10 mm spacer fit well and there was full range of motion and good mid range stability. Patella was then everted and resected leaving 14 mm. A 38 button was then applied and tracked well. All trial implants were removed. Orthomix injected all about the knee. The wound irrigated with Betadine Pulsavac and then the permanent cemented in position, tibia, femur and patella in that order. After 12 minutes, the tourniquet deflated. Minor bleeding points controlled with electrocautery. At 14 minutes knee flexed, no cement removal required. Wound irrigated and then the permanent liner seated, knee reduced and closed at 40 degrees of flexion with #2 Vicryl, 2-0 Vicryl and stainless steel clips. Appropriate dressing applied. The patient transferred to recovery room in satisfactory condition having tolerated the procedure well. Again Pathology pending on bone. I attest to the content of the Intraoperative Record and any orders documented therein. Any exception s are noted below.
[2020-02-29] MEDS ORDERED: VANCOMYCIN HCL 1,000 MG in SODIUM CHLORIDE 0.9% 250 ML IV ONE (11:15)
--- NOTE | 2020-02-29 11:24 | Anesthesiology Progress Note ---
Date of Service February 29, 2020 Anesthesia Post Procedure Vital Signs Vital Signs: Temp Pulse Pulse Resp BP Pulse Ox 02/29/20 11:15 36.9 C 77 14 105/63 97 02/29/20 11:05 81 15 111/67 100 02/29/20 10:56 36.7 C 83 15 114/66 100 02/29/20 07:25 36.9 C 83 16 122/87 99 Transfer of Care Handoff Completed per policy Notes Mental Status: alert / awake / arousable Patient Amnestic to Procedure: Yes Nausea / Vomiting: adequately controlled Pain: adequately controlled Airway Patency, RR, SpO2: stable & adequate BP & HR: stable & adequate Hydration State: stable & adequate Neuraxial Anesthesia: was administered and sensory block is resolving Anesthetic Complications: no major complications apparent
--- NOTE | 2020-02-29 11:33 | XRay Report ---
XR knee RT 1 or 2V routine HISTORY: 49 years-old Female S/P R TKA right knee total joint arthroplasty COMPARISON: Radiographs 09/06/2018 TECHNIQUE: 2 views of the right knee FINDINGS: Right knee total joint arthroplasty and patella resurfacing. Anterior midline skin tabitha are noted along with expected postsurgical soft tissue swelling and deep tissue air with surgical drainage cath eter. No acute fracture or retained foreign body. IMPRESSION: Right knee total joint arthroplasty and patella resurfacing with expected postoperative c hanges. ACT 112: Negative or not required by law. The above report was generated using voice recognition software. It may contain grammatical, syntax o r spelling errors. Electronically signed by: Nba Collins M.D. 02/29/2020 11:31 AM
--- NOTE | 2020-02-29 11:45 | Progress Notes ---
DATE: 02/29/2020 SUBJECTIVE: Status post right knee replacement. The patient is doing well, has no chest pain, shortness of breath, fever, chills, nausea, vomiting or headache. OBJECTIVE: Vital signs are stable. She is afebrile. Neurovascular check is limited by spinal, but starting to wear off. Postop x-rays look excellent. ASSESSMENT: Doing well status post right total knee replacement. Continue care pathway.
--- NOTE | 2020-02-29 11:50 | Discharge Summary (DS) ---
DATE OF DISCHARGE: 03/01/2020. CHIEF COMPLAINT: Right knee pain. HISTORY OF PRESENT ILLNESS: The patient underwent elective right total knee replacement. At this point in time, her hospital course has been uneventful. PAST MEDICAL HISTORY: Remarkable for anxiety, depression, GERD, gastric ulcer, obesity, osteoarthritis, TMJ. PAST SURGICAL HISTORY: Includes carpal tunnel, cholecystectomy, EGD, hysterectomy, D and E, total knee replacement on the left, wisdom teeth. FAMILY HISTORY: Reveals Alzheimer's disease, COPD, hypertension, seizure. SOCIAL HISTORY: Reveals she does not smoke. She lives with her . Social alcohol only. REVIEW OF SYSTEMS: Reveals no chest pain, shortness of breath, fever, chills, nausea, vomiting or headache. Postop x-rays look excellent. ASSESSMENT: Doing well status post right total knee replacement. PLAN: Discharged to home with services pending. Discharge tomorrow if she does well overnight.
[2020-02-29] MEDS ORDERED: HYDROmorphone INJ 0.5 MG/0.5 ML SYR IV PRN (12:10)
[2020-02-29] MEDS ORDERED: DiphenhydrAMINE HCL 50 MG/ML VIAL IV PRN (12:10)
[2020-02-29] MEDS ORDERED: SODIUM CHLORIDE 0.9% 1000ML 1,000 ML IV SCH (12:10)
[2020-02-29] MEDS ORDERED: bisacodyL 10 MG SUPP PR PRN (12:10)
[2020-02-29] MEDS ORDERED: MAGNESIUM HYDROXIDE SUSP 30 ML UDC PO PRN (12:10)
[2020-02-29] MEDS ORDERED: OXYCODONE HCL IR 5 MG TAB (IMMEDIATE RELEASE) PO PRN (12:10)
[2020-02-29] MEDS ORDERED: NALOXONE HCL 0.4 MG/1 ML VIAL/CARP IV PRN (12:10)
[2020-02-29] MEDS ORDERED: ONDANSETRON INJ 2 MG/ML 2 ML VIAL IV PRN (12:10)
[2020-02-29] MEDS ORDERED: ALUMINUM/MAGNESIUM SUSP 30 ML UDC PO PRN (12:10)
[2020-02-29] MEDS ORDERED: PANTOprazole 40 MG TAB PO PRN (12:10)
[2020-02-29] MEDS ORDERED: METOCLOPRAMIDE HCL INJ 5 MG/ML 2 ML VIAL IV PRN (12:10)
[2020-02-29] MEDS ORDERED: ORTHO WARFARIN NOMOGRAM SCH (14:00)
[2020-02-29] MEDS: ACETAMINOPHEN 500 MG TAB PO SCH ×2 (14:03→20:42)
[2020-02-29] MEDS: KETOROLAC 30 MG/ML VIAL IV SCH ×2 (14:03→19:48)
[2020-02-29] MEDS ORDERED: WARFARIN SOD 5 MG TAB PO SCH (16:00)
[2020-02-29] MEDS ORDERED: TRANEXAMIC ACID / 0.7% NACL 1,000 MG/100 ML BAG IV SCH (17:00)
[2020-02-29] MEDS: FERROUS GLUCONATE 324 MG TAB PO SCH (17:51)
[2020-02-29] MEDS: ASCORBIC ACID 500 MG TAB PO SCH (17:51)
[2020-02-29] MEDS: CEFAZOLIN 2000MG 2,000 MG/15 ML SYR IV SCH (19:48)
[2020-02-29] MEDS: DOCUSATE SODIUM 100 MG CAP PO SCH (20:43)
[2020-02-29] MEDS ORDERED: ESCITALOPRAM OXALATE 20 MG TAB PO SCH (21:00)
[2020-02-29] MEDS ORDERED: SENNA 8.6 MG TAB PO SCH (21:00)
[2020-03-01] MEDS: KETOROLAC 30 MG/ML VIAL IV SCH ×2 (00:16→06:39)
[2020-03-01] MEDS: CEFAZOLIN 2000MG 2,000 MG/15 ML SYR IV SCH (00:16)
[2020-03-01 06:38] LABS: Hematocrit (blood only) 30.6 % (37-47); Hemoglobin 10.2 g/dL (12.0-16.0); Mean Corpuscular Hemoglobin 30.2 pg (25-34); Mean Corpuscular Hgb Conc 33.3 g/dL (32-36); Mean Corpuscular Volume 90.5 fL (80-100); Mean Platelet Volume 9.2 fL (7.4-10.4); Platelet Count 326 K/uL (130-400); RDW Coefficient of Variation 12.8 % (11.5-14.5); Red Blood Count 3.38 M/uL (4.2-5.4); White Blood Count 15.15 K/uL (4.8-10.8)
[2020-03-01] MEDS: ACETAMINOPHEN 500 MG TAB PO SCH (06:39)
[2020-03-01 06:52] LABS: INR 1.1 (0.9-1.1); Prothrombin Time 11.1 Seconds (9.0-12.0)
[2020-03-01 07:11] LABS: BUN Creatinine Ratio 16.4 (10-20); Calcium 8.9 mg/dl (8.5-10.1); Creatinine Clr Calc Pharmacy 68.8 ml/min; Est GFR (African American) 93.3; Est GFR (Non-African American) 80.5; Potassium 3.6 mmol/L (3.5-5.1)
--- NOTE | 2020-03-01 07:18 | Progress Notes ---
DATE: 03/01/2020 SUBJECTIVE: Status post right total knee replacement, postop day #1, is doing well, has no major issues. Denies chest pain, shortness of breath, fever, chills, nausea, vomiting or headache. Is up and ambulating in the room. Wound dressing clean, dry and intact. Neurovascular check, femoral sciatic nerve is normal. Calves nontender A.m. labs pending. ASSESSMENT: Doing well. Discharge to home today.
[2020-03-01] MEDS ORDERED: WARFARIN SOD 5 MG TAB PO ONE (07:30)
[2020-03-01] MEDS ORDERED: dexAMETHasone 10 MG in SYRINGE 0 ML IV SCH (08:00)
--- NOTE | 2020-03-01 08:40 | Orthopedic Progress Note ---
Date of Service March 01, 2020 Assessment & Plan (1) Status post total knee replacement using cement: Patient's dressing was changed today by me. Continue ALFIE hose for the next 6 weeks. She will use her knee immobilizer for today and tomorrow, and discontinue on Thursday morning. Coumadin today per nomogram. PT/OT this morning. Anticipate discharge to home today with home health services. Follow-up in the office in 2 weeks as scheduled for staple removal. Written discharge instructions were provided. Prescriptions for Percocet, Zofran, and Coumadin were sent to her [facility] pharmacy. Admission and Anticipated Discharge Date Admission Date: February 29, 2020 Subjective Patient was seen in her room this morning. She denies any complaints. No chest pain, shortness of breath, nausea, vomiting, or abdominal pain. She states she did fairly well overnight. She feels ready for discharge to home. She has only been using Tylenol and Benadryl for pain control. She has not used any oxycodone. No other complaints. Review of Systems Review of Systems: Unchanged from yesterday. Physical Exam Physical Exam: General: Well-developed, well-nourished, middle-aged white female, in no acute distress. Laying on the bed. Alert and oriented. Conversive. Skin: Warm and dry with good turgor. No rashes or lesions. Postsurgical dressing is in place on the right knee. Upon removal, she has expected postoperative edema. No ecchymosis. No active drainage. There is no drainage on her dressings. Amada are intact. Wound edges are well approximated. Musculoskeletal: Patient has full terminal extension of the right leg. She has intact motor function to the ankle and toes. She is able to perform a straight leg raise. Flexion was not attempted at this time. Neurologic: Gross sensation is intact across the right leg by soft touch. Peripheral pulses are 2+. Results & Data ([facility]) Vital Signs (Past 12 Hours) Vital Signs Temp Pulse Resp BP Pulse Ox 03/01/20 07:41 37.0 C 72 16 95/60 L 98 03/01/20 04:07 36.9 C 74 14 98/62 L 97 03/01/20 00:07 37.2 C 75 14 97/62 L 98 Laboratory Results H&H obtained this morning are 10.2 and 30.6. WBC is 15.15. INR is 1.1. PRP is unremarkable.
[2020-03-01] MEDS ORDERED: MULTIVITAMIN TAB PO SCH (09:00)
[2020-03-01] MEDS: ASCORBIC ACID 500 MG TAB PO SCH (09:04)
[2020-03-01] MEDS: FERROUS GLUCONATE 324 MG TAB PO SCH (09:06)
[2020-03-01] MEDS: DOCUSATE SODIUM 100 MG CAP PO SCH (09:09)
--- NOTE | 2020-03-01 12:44 | Operative Report ---
Post Operative Report Pre & Post Diagnosis Operation Date: 02/29/20 08:50 Pre-Op Diagnosis: Right Knee Degenerative Joint Disease Post-Op Diagnosis: Right Knee Degenerative Joint Disease I identified the patient and participated in the time-out.: Yes Procedure Operation Date: 02/29/20 08:50 Actual Procedures p Right Total Knee Arthroplasty, Cemented(Right) - Michael Jenkins MD Surgeon Michael Jenkins MD V Belt Mold Assembler And Curer chad/mary MAYORGA Estimated Blood Loss 25 Findings Consistent with Post-Op Diagnosis Specimens Bone cuts Anesthesia Type Spinal MAC Complications none Disposition Accompanied Patient To Recovery: Yes Disposition: Recovery Room Description of Procedure As per Dr. Jenkins's note, I assisted in scrubbing and draping instruments handling, and wound closure I attest to the content of the Intraoperative Record and any orders documented therein. Any exceptions are noted below.
== END 2020-03-01 11:01 | disposition home health service (06) ==
LOC: ASU 06:51 → 3E 06:51